=== PATIENT | female | born 2000 | race Hispanic/Latino ===

== ENCOUNTER 2023-01-11 04:33 | Emergency (ER) | payer MEDICAID ==
[~2023-01-11] VITALS: Ht 165.1 cm; Wt 117.0 kg
[2023-01-11] MEDS ORDERED: AMOX1TAB16 PO (05:58)
[2023-01-11] MEDS ORDERED: IBUP-1493 PO (05:58)
[2023-01-11] MEDS ORDERED: CIPR7.5D OT (05:58)
[2023-01-11 06:21] VITALS: BP 122/68
== END 2023-01-11 06:34 ==
LOC: EDH 04:33
DX: H60.91 Unspecified otitis externa, right ear (principal); H66.91 Otitis media, unspecified, right ear